=== PATIENT | female | born 1980 ===

== ENCOUNTER 2018-09-24 08:52 | Outpatient (CLI) | payer OTHER | END 2018-09-24 09:49 | disposition home or self-care (01) | LOC: NST 08:52 | DX: Z34.83 Encounter for supervision of other normal pregnancy, third trimester (principal) ==

== ENCOUNTER 2018-10-09 08:25 | Outpatient (CLI) | payer OTHER | END 2018-10-09 09:20 | disposition home or self-care (01) | LOC: NST 08:25 | DX: Z34.83 Encounter for supervision of other normal pregnancy, third trimester (principal) ==